=== PATIENT | female | born 1960 | race Caucasian/White ===

== ENCOUNTER → 2019-12-29 09:50 | Outpatient (CLI) | payer BC, SELFPAY ==
--- NOTE | 2019-12-29 09:52 | DI.RAD.S_ITS ---
PROCEDURE: XR KUB INDICATIONS: KIDNEY STONES TECHNIQUE: One view of the abdomen acquired. COMPARISON: Outside Facility, RG, CT KUB, 12/08/2019, 13:21. FINDINGS: Surgical changes and devices: None. Bowel: Bowel gas pattern is normal. Soft tissues: Renal contours are partially obscured by stool contents. Small renal calculi in kidneys bilaterally are present. The distal right ureter stone seen on the prior comparison CT is not definitively visualized. Calcific densities in the pelvis are likely phleboliths which were visualized on CT. Visualized solid organ contours appear normal in size. Bones: No suspicious bony lesions. IMPRESSION: 1. The distal right ureter stone seen on the prior comparison CT is not definitively visualized on the radiograph. 2. Bilateral renal calculi. Dictated by: Irene Santiago M.D. on 12/29/2019 at 10:23 Approved by: Irene Santiago M.D. on 12/29/2019 at 10:30
== END ==
PROVIDERS: Referring Provider Specialist; Visit Provider Specialist
DX: N20.0 Calculus of kidney (principal)
CPT/HCPCS: 74018